=== PATIENT | female | born 1955 | race Asian ===

== ENCOUNTER 2017-12-20 21:08 | Inpatient (IN) | payer OTHER ==
[~2017-12-20] VITALS: Ht 162.6 cm; Wt 67.6 kg
[2017-12-20 21:09] VITALS: Ht 162.6 cm; Wt 67.6 kg
[2017-12-20 21:53] LABS: BASOPHIL % 0.9 % (0-2); PLATELET COUNT 202 x10^3mcL (130-400)
[2017-12-20 21:54] LABS: RED CELL DISTRIBUTION WIDTH 15.3 % (11.5-14.5)
[2017-12-20 22:02] LABS: CALCIUM 8.4 mg/dL (8.5-10.1); CARBON DIOXIDE 26.2 mmol/L (21-32); POTASSIUM SERUM 3.4 mmol/L (3.5-5.1)
[2017-12-20 22:06] LABS: ALBUMIN 3.6 g/dL (3.4-5.0); BILIRUBIN TOTAL 0.5 mg/dL (0.20-1.00); TOTAL PROTEIN, SERUM 7.8 g/dL (6.4-8.2)
[2017-12-20 22:17] LABS: microscopic required? YES; urine erythrocyte NEGATIVE (NEGATIVE)
[2017-12-20] MEDS ORDERED: AMLODIPINE-OLM1 EAC1 (23:27)
[2017-12-20] MEDS ORDERED: METOPROLOL SUCC25 M2 (23:27)
[2017-12-20] MEDS ORDERED: LOSARTAN POTASS25 M1 (23:28)
[2017-12-20] MEDS ORDERED: JANUVIA25 M1 (23:28)
[2017-12-20] MEDS ORDERED: PRA40 (23:28)
[2017-12-21] VITALS (7 sets, daily range): BP systolic 124–160; BP diastolic 62–82
[2017-12-21] MEDS ORDERED: JANUVIA100 M1 PO (00:27)
[2017-12-21] MEDS ORDERED: NAPROXEN500 MG PO (00:27)
[2017-12-21] MEDS ORDERED: PRAVASTATIN SOD40 M1 PO (00:28)
[2017-12-21] MEDS ORDERED: METOPROLOL SUCC50 M2 PO (00:28)
[2017-12-21] MEDS ORDERED: CATAPRES0.1 MG PO (00:29)
[2017-12-21] MEDS ORDERED: LOSARTAN POTASS1 TAB PO (00:29)
[2017-12-21] MEDS ORDERED: AMLODIPINE BESYL5 M2 PO (00:29)
[2017-12-21 01:27] LABS: AMPHETAMINE QUAL UR NONE DETECTED (See below)
[2017-12-21 02:40] LABS: MAGNESIUM 2.3 mg/dL (1.8-2.4); PHOSPHOROUS 2.6 mg/dL (2.5-4.9)
[2017-12-21 02:46] LABS: FREE T4 0.99 ng/dL (0.76-1.46); T4(THYROXINE) 5.4 ug/dL (4.7-13.3)
[2017-12-21 03:02] LABS: T3 TOTAL 0.76 ng/mL
[2017-12-21 07:24] LABS: BASOPHIL % 0.5 % (0-2); PLATELET COUNT 179 x10^3mcL (130-400)
[2017-12-21 07:33] LABS: RED CELL DISTRIBUTION WIDTH 15.4 % (11.5-14.5)
[2017-12-21 08:13] LABS: CALCIUM 8.7 mg/dL (8.5-10.1); CARBON DIOXIDE 26.3 mmol/L (21-32); CHLORIDE SERUM 107 mmol/L (98-107); CREATININE SERUM 0.9 mg/dL (0.6-1.0); GFR1 > 60 mL/min; GLUCOSE SERUM 122 mg/dL (74-106); POTASSIUM SERUM 3.9 mmol/L (3.5-5.1); SODIUM SERUM 140 mmol/L (136-145)
[2017-12-22 05:15] VITALS: BP 132/84
[2017-12-22 05:40] LABS: BASOPHIL % 0.5 % (0-2); PLATELET COUNT 200 x10^3mcL (130-400)
[2017-12-22 05:47] LABS: RED CELL DISTRIBUTION WIDTH 15.6 % (11.5-14.5)
[2017-12-22 06:12] LABS: CALCIUM 8.5 mg/dL (8.5-10.1); CARBON DIOXIDE 23.5 mmol/L (21-32); CHLORIDE SERUM 107 mmol/L (98-107); CREATININE SERUM 0.8 mg/dL (0.6-1.0); GFR1 > 60 mL/min; GLUCOSE SERUM 113 mg/dL (74-106); PHOSPHOROUS 3.2 mg/dL (2.5-4.9); SODIUM SERUM 142 mmol/L (136-145)
[2017-12-22 07:58] VITALS: BP 118/79
[2017-12-22 10:37] VITALS: BP 141/90
[2017-12-22 12:36] VITALS: BP 119/77
[2017-12-22] MEDS ORDERED: ECO81 PO (15:56)
[2017-12-22] MEDS ORDERED: ELIQUIS2.5 MG PO (15:56)
[2017-12-22] MEDS ORDERED: TOP50 PO (15:56)
[2017-12-22 16:27] VITALS: BP 137/84
== END 2017-12-22 17:38 | disposition home or self-care (01) | DRG 74 ==
LOC: ED 21:08 → DU 23:25
PROVIDERS: Emergency Medicine; Family Medicine
DX: G90.8 Other disorders of autonomic nervous system (principal); N39.0 Urinary tract infection, site not specified; I48.0 Paroxysmal atrial fibrillation; E87.6 Hypokalemia; E11.9 Type 2 diabetes mellitus without complications; I16.0 Hypertensive urgency; E78.5 Hyperlipidemia, unspecified; Z91.81 History of falling; Z68.25 Body mass index [BMI] 25.0-25.9, adult
CPT/HCPCS: 82962; 83880; 84439; J0696; J3490; J7030; Q0092